=== PATIENT | female | born 1995 | race American Indian/Alaskan Native ===

== ENCOUNTER 2019-10-15 20:16 | Emergency (ER) | payer OTHER ==
--- NOTE | 2019-10-15 21:36 | XRay Report ---
CHEST 2 VIEWS INDICATION: cough. COMPARISON: 08/30/2018 FINDINGS: Support devices: None. Heart: Within normal limits. Lungs: No acute air space or interstitial disease. Pleura: No significant pleural effusion. No pneumothorax. Additional findings: None. IMPRESSION: 1. No acute findings. Signer Name: Ki Garsia MD Signed: 10/15/2019 9:32 PM Workstation Name: [id number]
[2019-10-15] MEDS ORDERED: IBUPROFEN 800 MG TAB PO ONE (23:43)
[2019-10-15] MEDS ORDERED: predniSONE 20 MG TAB PO ONE (23:43)
--- NOTE | 2019-10-16 01:08 | Emergency Department Report ---
- General Chief Complaint: Upper Respiratory Infection Stated Complaint: CHEST PAIN Time Seen by Provider: 10/15/19 23:42 Source: patient Mode of arrival: Ambulatory Limitations: No Limitations - History of Present Illness Initial Comments: Ms. Conner is a 24-year-old -[place] female with a history of asthma who presents for cough with chest pain x3 days states she is out of albuterol inhaler. She denies fevers or chills no nausea vomiting . There is no shortness of breath there is no wheezing noted at this time. Symptoms are exacerbated by environmental exposure. Symptoms are relieved by rest. She is requesting albuterol refill. Patient appears well with no acute distress at this time. There is no wheezing or stridor. MD Complaint: cough, rhinorrhea, nasal congestion Onset/Timin -: days(s) Severity: moderate Severity scale (0 -10): 4 Quality: sharp Consistency: intermittent Improves With: rest Worsens With: activity Context: sick contacts Associated Symptoms: rhinorrhea, nasal congestion, cough, chest pain Treatments Prior to Arrival: none - Related Data Previous Rx's Medication Instructions Recorded Last Taken Type Albuterol INH(or & Nicu Only) 2 puff IH QID PRN #1 inhalation 08/31/18 Unknown Rx [ProAir HFA Inhaler] levoFLOXacin [Levaquin TAB] 500 mg PO QDAY #7 tablet 08/31/18 Unknown Rx predniSONE [Deltasone] 20 mg PO QDAY #5 tab 08/31/18 Unknown Rx Albuterol INH(or & Nicu Only) 2 puff IH QID PRN #8.5 gram 10/16/19 Unknown Rx [ProAir HFA Inhaler] Ibuprofen [Motrin 800 MG tab] 800 mg PO Q8HR PRN #30 tablet 10/16/19 Unknown Rx predniSONE [Deltasone] 40 mg PO QDAY 5 Days #10 tab 10/16/19 Unknown Rx Allergies Allergy/AdvReac Type Severity Reaction Status Date / Time No Known Allergies Allergy Unverified 08/30/18 22:35 ED Review of Systems ROS: Stated complaint: CHEST PAIN Other details as noted in HPI Constitutional: denies: chills, fever Eyes: denies: eye pain, eye discharge, vision change ENT: congestion Respiratory: cough, shortness of breath, wheezing Cardiovascular: chest pain. denies: palpitations Endocrine: no symptoms reported Gastrointestinal: denies: abdominal pain, nausea, diarrhea Genitourinary: denies: urgency, dysuria, discharge Musculoskeletal: denies: back pain, joint swelling, arthralgia Skin: denies: rash, lesions Neurological: denies: headache, weakness, paresthesias Psychiatric: as per HPI Hematological/Lymphatic: denies: easy bleeding, easy bruising ED Past Medical Hx - Past Medical History Previous Medical History?: Yes Hx Asthma: Yes - Surgical History Past Surgical History?: No - Social History Smoking Status: Never Smoker Substance Use Type: None - Medications Home Medications: Home Medications Medication Instructions Recorded Confirmed Last Taken Type Albuterol INH(or & Nicu Only) 2 puff IH QID PRN #1 inhalation 08/31/18 Unknown Rx [ProAir HFA Inhaler] levoFLOXacin [Levaquin TAB] 500 mg PO QDAY #7 tablet 08/31/18 Unknown Rx predniSONE [Deltasone] 20 mg PO QDAY #5 tab 08/31/18 Unknown Rx Albuterol INH(or & Nicu Only) 2 puff IH QID PRN #8.5 gram 10/16/19 Unknown Rx [ProAir HFA Inhaler] Ibuprofen [Motrin 800 MG tab] 800 mg PO Q8HR PRN #30 tablet 10/16/19 Unknown Rx predniSONE [Deltasone] 40 mg PO QDAY 5 Days #10 tab 10/16/19 Unknown Rx ED Physical Exam - General Limitations: No Limitations General appearance: alert, in no apparent distress - Head Head exam: Present: atraumatic, normocephalic - Eye Eye exam: Present: normal appearance, PERRL, EOMI Pupils: Present: normal accommodation - ENT ENT exam: Present: normal orophraynx, mucous membranes moist, TM's normal bilaterally, normal external ear exam - Neck Neck exam: Present: normal inspection, full ROM. Absent: tenderness, lymphadenopathy - Respiratory Respiratory exam: Present: normal lung sounds bilaterally, chest wall tenderness (right lateral chest wall ). Absent: respiratory distress, wheezes, rales, rhonchi, stridor - Cardiovascular Cardiovascular Exam: Present: regular rate, normal rhythm, normal heart sounds. Absent: systolic murmur, diastolic murmur, rubs, gallop - GI/Abdominal GI/Abdominal exam: Present: soft, normal bowel sounds. Absent: distended, tenderness, guarding, rebound, rigid, bruit, hernia - Rectal Rectal exam: Present: deferred - Extremities Exam Extremities exam: Present: normal inspection, full ROM, normal capillary refill. Absent: tenderness - Back Exam Back exam: Present: normal inspection, full ROM. Absent: tenderness, CVA tenderness (R), CVA tenderness (L) - Neurological Exam Neurological exam: Present: alert, oriented X3, CN II-XII intact, normal gait - Psychiatric Psychiatric exam: Present: normal affect, normal mood - Skin Skin exam: Present: warm, dry, intact, normal color. Absent: rash ED Course Vital Signs 10/15/19 10/15/19 20:20 23:54 Temperature 98.7 F Pulse Rate 73 Respiratory 18 16 Rate Blood Pressure 102/40 O2 Sat by Pulse 100 Oximetry ED Medical Decision Making - Radiology Data Radiology results: report reviewed, image reviewed FINDINGS: Support devices: None. Heart: Within normal limits. Lungs: No acute air space or interstitial disease. Pleura: No significant pleural effusion. No pneumothorax. Additional findings: None. IMPRESSION: 1. No acute findings. Signer Name: Ki Garsia MD Signed: 10/15/2019 9:32 PM Workstation Name: [id number] Transcribed By: WG Dictated By: Ki Garsia MD Electronically Authenticated By: Ki Garsia MD Signed Date/Time: 10/15/192131 DD/ 30 TD/TT: - Medical Decision Making Chest x-ray normal no infiltrates no opacities, patient states chest wall pain is relieved with NSAIDs. There is no wheezing no stridor patient has no respiratory distress. Plan refill albuterol inhaler short run of prednisone patient will take [id number] ibuprofen as needed for chest wall pain this is URI, with history of asthma. Patient DC'd in stable condition at this time Critical care attestation.: If time is entered above; I have spent that time in minutes in the direct care of this critically ill patient, excluding procedure time. ED Disposition Clinical Impression: Asthma Qualifiers: Asthma severity: mild Asthma persistence: intermittent Asthma complication type: uncomplicated Qualified Code(s): J45.20 - Mild intermittent asthma, uncomplicated URI (upper respiratory infection) Qualifiers: URI type: unspecified viral URI Qualified Code(s): J06.9 - Acute upper respiratory infection, unspecified Disposition: DC- TO HOME OR SELFCARE Is pt being admited?: No Does the pt Need Aspirin: No Condition: Stable Instructions: Asthma (ED) Prescriptions: predniSONE [Deltasone] 40 mg PO QDAY 5 Days #10 tab Ibuprofen [Motrin 800 MG tab] 800 mg PO Q8HR PRN #30 tablet PRN Reason: pain fever Albuterol INH(or & Nicu Only) [ProAir HFA Inhaler] 2 puff IH QID PRN #8.5 gram PRN Reason: Shortness Of Breath Referrals: [facility] [Outside] - 3-5 Days Forms: Work/School Release Form(ED) Time of Disposition: 01:14
[2019-10-16 02:07] VITALS: BP 111/60
== END 2019-10-16 01:30 | disposition home or self-care (01) ==
LOC: ED 20:16
DX: J45.909 Unspecified asthma, uncomplicated (principal); J06.9 Acute upper respiratory infection, unspecified; Z79.1 Long term (current) use of non-steroidal anti-inflammatories (NSAID); Z79.899 Other long term (current) drug therapy
CPT/HCPCS: 71046; 99283; J7512